=== PATIENT | male | born 1995 | race Caucasian/White ===

== ENCOUNTER 2019-11-25 12:41 | Emergency (ER) | payer SELFPAY ==
[~2019-11-25] VITALS: Ht 180.3 cm; Wt 61.7 kg
[~2019-11-25 12:41] MED LIST: LOTRISONE 0.05%1 CRE TP
== END 2019-11-25 16:42 ==
LOC: ED 12:41
DX: S05.32XA Ocular laceration without prolapse or loss of intraocular tissue, left eye, initial encounter (principal); Z23 Encounter for immunization; Y08.89XA Assault by other specified means, initial encounter; Y93.89 Activity, other specified; Y92.89 Other specified places as the place of occurrence of the external cause; Y99.8 Other external cause status

== ENCOUNTER 2021-04-10 19:35 | Emergency (ER) | payer SELFPAY | END 2021-04-10 21:55 | disposition left against medical advice (07) | LOC: ED 19:35 | DX: R11.2 Nausea with vomiting, unspecified (principal); Z53.21 Procedure and treatment not carried out due to patient leaving prior to being seen by health care provider ==